=== PATIENT | female | born 1980 | race Caucasian/White ===

== ENCOUNTER 2017-01-27 04:52 | Inpatient (IN) | payer BC ==
[~2017-01-27] VITALS: Ht 172.7 cm; Wt 78.0 kg
[~2017-01-27 04:52] MED LIST: PREN29TA PO
[2017-01-27] MEDS ORDERED: LACTATED RINGER'S 1000 ML INJ 1,000 ML IV SCH (05:25)
[2017-01-27] MEDS ORDERED: LACTATED RINGER'S 1000 ML INJ 1,000 ML IV PRN (05:25)
--- NOTE | 2017-01-27 05:25 | HHI.HP ---
History & Physical H&P Patient Name: Penny Ewing Unit Number: [id number] Date of : 1980 Patient Status: Registered Clinic Attending Doctor: Brendan Alcantara II, MD HPI HPI Chief Complaint breech presentation at term Date Seen: Jan 24, 2017 Time Seen: 13:30 Travel History International Travel<30 Days: No Contact w/Intl Traveler<30Days: No Known Affected Area: No History of Present Illness HPI Patient is a 36-year-old white female at 39 weeks who is a patient of Dionne Hatfield presents in labor with SROM breech presentation management options, the patient currently is a breech fetus and she would rather not have a if possible she denies pain bleeding or leakage of fluid. she is CTXing with SROM and tami breech cx 8 cm Weeks Gestation: 39 Para: 1 : 2 History (Limited) History Obstetric History Obstetric History One vaginal delivery uncomplicated Social History Alcohol Use: No Tobacco Use: No Substance Abuse: No Allergies-Medications Allergies-Medications ROS Review of Systems General / Constitutional: No: Fever, Weight Gain, Chills, Other Eyes: No: Diploplia, Blurred Vision, Visual changes, Pain, Photophobia HENT: No: Headaches, Vertigo, Lightheadedness Cardiovascular: No: Irregular Rhythm, Chest Pain or Discomfort, Palpitations, Tachycardia, Syncope, Varicosities, Edema, Cyanosis Respiratory: No: Cough, Short of Breath, Other Gastrointestinal: No: Nausea, Vomiting, Diarrhea Genitourinary: No: Decreased Urinary Output, Oliguria Musculoskeletal: No: Limited ROM, Weakness, Cramping, Edema, Pain Skin: No Rash, No Itching, No Dryness, No Lumps, No Change in Pigmentation, No Change in Nails, No Alopecia, No Lesions Neurologic: No: Weakness, Dizziness, Syncope, Focal Abnormalities, Coordination Problem, Headache, Slurred Speech, Seizures Psychiatric: No: Depression, Suicidal Ideations, Homicidal Ideation Endocrine: No: Heat Intolerance, Cold Intolerance, Polydipsia, Polyuria, Other Physical Exam Physical Exam Narrative GENERAL: Well-nourished, well-developed patient. SKIN: Warm and dry. HEAD: Normocephalic and atraumatic. EYES: No scleral icterus. No injection or drainage. ENT: No nasal drainage noted. Mucous membranes pink. Airway patent. NECK: Supple, trachea midline. No JVD. CARDIOVASCULAR: Regular rate and rhythm without murmurs, gallops, or rubs. RESPIRATORY: Breath sounds equal bilaterally. No accessory muscle use. BREASTS: Bilateral exam showed no masses , no retractions, no nipple discharge. ABDOMEN/GI: Abdomen soft, non-tender, bowel sounds present, no rebound, no guarding Gravid to [39-] weeks size Fundal Height: [37-] GENITOURINARY: External Genitalia: intact and normal in appearance BUS glands: [-] Cervix: [post-] Dilatation: [8-] Effacement: 90] Station: [- 1] Presentation: [-breech] Membranes: SROM ] Uterine Contractions: [ q 2 min] FHT's: Category: [-1] Baseline: [-133] Reactive: [yes-] Variability: [mod-] Decels: [0-] EXTREMITIES: No cyanosis or edema. BACK: Nontender without obvious deformity. No CVA tenderness. NEUROLOGICAL: Awake and alert. Motor and sensory grossly within normal limits. Five out of 5 muscle strength in all muscle groups. Normal speech. Data Data [facility] Interpretation(s) Patient is 36-year-old white female at 39 weeks with a baby in a breech presentation, she would like to avoid if possible and all options were discussed today.she is in labor now 8 cm with SROM and she wants a vaginal Plan Diagnosis: breech at term in labor with SROM Disposition Plan to admit for delivery Condition: Stable Brendan Alcantara II, MD Jan [id number] Brendan Alcantara II, MD Jan 27, 2017 05:24
[2017-01-27] MEDS ORDERED: LIDOCAINE HCL 1% 50 ML VIAL I-DERMAL PRN (05:30)
[2017-01-27] MEDS ORDERED: OXYTOCIN 30 UNITS-500ML PREMIX 500 ML IV ONE (05:30)
[2017-01-27] MEDS ORDERED: LIDOCAINE HCL 1% 50 ML VIAL INFIL PRN (05:30)
[2017-01-27] MEDS ORDERED: MINERAL OIL 10 ML VIAL TOPICAL PRN (05:30)
[2017-01-27] MEDS ORDERED: SODIUM CHLORID 0.9% 500 ML BAG IV PRN (05:30)
[2017-01-27] MEDS ORDERED: CITRIC ACID-SODIUM CITRATE LIQ 30 ML UDC PO SCH (05:30)
[2017-01-27 05:35] LABS: AUTOMATED NEUTROPHIL # 6.4 TH/MM3 (1.8-7.7); BASOPHIL % 0.4 % (0.0-2.0); EOSINOPHIL # 0.1 TH/MM3 (0-0.4); EOSINOPHIL % 0.7 % (0.0-4.0); HEMATOCRIT 35.8 % (35.0-46.0); HEMO FLAGS DIFF FINAL; LYMPH % 19.2 % (9.0-44.0); LYMPHOCYTE # 1.7 TH/MM3 (1.0-4.8); MEAN CORPUSCULAR HEMOGLOBIN 31.9 PG (27.0-34.0); MEAN CORPUSCULAR HGB CONC 35.4 % (32.0-36.0); MONO % 6.5 % (0.0-8.0); NEUT % 73.2 % (16.0-70.0); PLATELET COUNT 179 TH/MM3 (150-450); RED BLOOD COUNT 3.98 MIL/MM3 (4.00-5.30); RED CELL DISTRIBUTION WIDTH 12.8 % (11.6-17.2); WHITE BLOOD COUNT 8.7 TH/MM3 (4.0-11.0)
[2017-01-27] MEDS ORDERED: SODIUM CHLOR 0.9% 1000 ML INJ 1,000 ML IV PRN (05:45)
[2017-01-27 05:47] LABS: BACTERIA, URINE RARE /hpf; BLOOD, URINE TRACE (NEG); COMMENT (UR) CULT NOT INDICATED; CULTURE IF INDICATED CULT NOT INDICATED; GLUCOSE,URINE NEG (NEG); KETONE, URINE NEG (NEG); MUCUS URINE FEW /lpf (OCC); NITRITE,URINE NEG (NEG); SQUAMOUS EPITHELIAL CELL URINE 1 /hpf (0-5); URINE COLOR LIGHT-YELLOW (YELLW/STRAW)
[2017-01-27 05:58] LABS: BLOOD GAS BASE EXCESS -3.2 mmol/L (-2-2); BLOOD GAS O2 HGB SATURATION 70 % (90-100); CORD BLOOD GAS HCO3 21 mmol/L (21-29); CORD BLOOD GAS PCO2 37 mmHG (34-78); CORD BLOOD GAS PH 7.37 (7.14-7.42); CORD BLOOD GAS PO2 33 mmHG (3.0-40.0); DRAW SITE CORD BLOOD; STAT YES
[2017-01-27] MEDS ORDERED: ACETAMINOPHEN 325 MG TAB PO PRN (06:15)
[2017-01-27] MEDS ORDERED: DOCUSATE SODIUM 50 MG/SENNA 8.6 MG TAB PO PRN (06:15)
[2017-01-27] MEDS ORDERED: ALUMINUM/MAGNESIUM/SIMETH 30 ML CUP PO PRN (06:15)
[2017-01-27] MEDS ORDERED: SODIUM CHLORIDE 0.9% FLUSH 10 ML FLUSH IV FLUSH PRN (06:15)
[2017-01-27] MEDS ORDERED: ZOLPIDEM TARTRATE 5 MG TAB PO PRN (06:15)
[2017-01-27] MEDS ORDERED: ONDANSETRON ODT 4 MG TAB PO PRN (06:15)
[2017-01-27] MEDS ORDERED: BENZOCAINE 20% TOPICAL SPRAY 60 ML CAN TOPICAL PRN (06:15)
[2017-01-27] MEDS ORDERED: OXYTOCIN 30 UNITS-500ML PREMIX 500 ML IV SCH (06:15)
[2017-01-27] MEDS ORDERED: WITCH HAZEL 50%/GLYCERIN 12.5% 40 PAD JAR TOPICAL PRN (06:15)
[2017-01-27] MEDS ORDERED: oxyCODONE/ACETAMINOPHEN 5 MG/325 MG TAB PO PRN ×2 (06:15)
--- NOTE | 2017-01-27 06:26 | PD.OB.DELI ---
Weeks gestation: 39 Gest age assessed date: Jan 27, 2017 Gest age assessed time: 04:52 Pt started active labor?: Yes Active labor start date: Jan 27, 2017 Active labor start time: 02:00 Medical induction of labor?: No Artificial rupture of membrane: No Anesthesia: None, Lidocaine local to perineum Episiotomy: Midline Vaginal Delivery: Normal Presentation: Breech Nuchal Cord: None Delayed cord clamping (45 sec): Yes Infant: Female, Single Delivery date: Jan 27, 2017 Delivery time: 05:42 One Minute : 8 Five Minute : 9 Weight: 3530 gm Placenta: Spontaneous delivery, Intact Laceration: Episiotomy, 2 deg Repair: Chromic running Estimated blood loss: 100 cc Additional Information tami breech delivered over 2 nd deg epis no complication cord ph 7.37 Brendan Alcantara II, MD Jan 27, 2017 06:26
[2017-01-27] MEDS: IBUPROFEN 800 MG TAB PO PRN ×3 (07:14→23:12)
[2017-01-27] MEDS ORDERED: MEASLES, MUMPS, RUBELLA VACCINE 0.5 ML VIAL SQ ONE (16:00)
[2017-01-27] MEDS ORDERED: DIPHTH/TETANUS/ACEL PERTUSSIS (BOOSTER) 0.5 ML VIAL/PFS IM ONE (16:00)
--- NOTE | 2017-01-28 07:09 | HHI.OB ---
Subjective Post Day: 1 Remarks Ms Ewing had no acute events overnight, VSS, normal lochia and decreasing, tolerating PO, voiding, flatus and ambulating. No BM yet. Feeding via breast. Denies CP, SOB, N/V/D and DVT pain. Objective Objective Remarks GENERAL: Well-nourished, well-developed patient in NAD. CARDIOVASCULAR: Regular rate and rhythm without murmur, gallop, or rub. RESPIRATORY: Breath sounds equal bilaterally. No accessory muscle use. ABDOMEN/GI: Abdomen soft, non-tender. Fundus: Firm, non-tender below umbilicus. GENITOURINARY: Light to moderate bleeding. EXTREMITIES: No cyanosis or edema, non-tender, without signs of DVT. Medications and IVs Current Medications Medications (Trade) Dose Ordered Sig/Tom Route Start Time Stop Time Status Last Admin Lactated Ringer's 1,000 ml @ 125 mls/hr Q8H IV 01/27/17 05:25 Lactated Ringer's 1,000 ml @ 3,000 mls/hr Q20M PRN IV 01/27/17 05:25 Sodium Chloride 1,000 ml @ 100 mls/hr Q10H PRN IV 01/27/17 05:45 (Xylocaine 1% Inj (50 ml)) 0.1 ml UNSCH X1 PRN I-DERMAL 01/27/17 05:30 01/30/17 05:29 (Bicitra Liq) 30 ml CARPET YARN WINDER OPERATOR PO 01/27/17 05:30 01/31/17 05:29 (fentaNYL INJ) 50 mcg Q1H PRN IV PUSH 01/27/17 05:30 (fentaNYL INJ) 100 mcg Q1H PRN IV PUSH 01/27/17 05:30 (Xylocaine 1% Inj (50 ml)) 10 ml UNSCH X1 PRN INFIL 01/27/17 05:30 01/29/17 05:29 (Muri-Lube Oil) 10 ml UNSCH PRN TOPICAL 01/27/17 05:30 (NS Flush) 2 ml BID IV FLUSH 01/27/17 09:00 (NS Flush) 2 ml UNSCH PRN IV FLUSH 01/27/17 06:15 (Tylenol) 650 mg Q4H PRN PO 01/27/17 06:15 (Motrin) 800 mg Q8H PRN PO 01/27/17 06:15 01/27/17 23:12 (Percocet 5-325 Mg) 1 tab Q4H PRN PO 01/27/17 06:15 (Percocet 5-325 Mg) 2 tab Q4H PRN PO 01/27/17 06:15 (Americaine 20% Top Spr) 1 spray Q4H PRN TOPICAL 01/27/17 06:15 (Tucks Pads) 1 applic QID PRN TOPICAL 01/27/17 06:15 (Megan-Colace) 2 tab Q12H PRN PO 01/27/17 06:15 01/27/17 23:12 (Ambien) 5 mg HS PRN PO 01/27/17 06:15 (Mag-Al Plus Susp Liq) 15 ml Q8H PRN PO 01/27/17 06:15 (Zofran Odt) 4 mg Q6H PRN PO 01/27/17 06:15 Assessment/Plan Assessment and Plan 36YO delivered via @39 weeks breech with 2nd degree episiotomy and 100c EBL is progressing well on PPD#1. Decreasing lochia, pain controlled, voiding, flatus, and ambulating. . Would like to discharge today if possible. PLAN: -Routine care -Ibuprofen, tylenol for pain PRN -Oral fluids -OOB/ambulation -Vaginal rest [id number] -Followup with PCP/[facility] CEMENTER in 6 weeks -Return if fever or abnormal drainage from episiotomy -Undecided on contraception Discussed with Giuliana Rosario and Carlos Mckeon MD R1 Jan 28, 2017 07:09
[2017-01-28] MEDS: SODIUM CHLORIDE 0.9% FLUSH 10 ML FLUSH IV FLUSH SCH ×2 (09:48→12:16)
[2017-01-28] MEDS ORDERED: PERI PO (12:13)
[2017-01-28] MEDS ORDERED: IBUP1TAB7 PO (12:13)
--- NOTE | 2017-01-28 12:13 | HHI.DCPOC ---
Discharge Care Plan Diagnosis: (1) Vaginal delivery Report Symptoms to Your Doctor -Temperature above 100.5 degrees -Redness, of incision or excessive or foul smelling drainage -Unusual pain or calf pain -Increased vaginal bleeding -Painful or difficulty urinating -Feelings of extreme sadness or anxiety after 2 weeks Goals to Promote Your Health * To prevent worsening of your condition and complications * To maintain your health at the optimal level Directions to Meet Your Goals Take your medications as prescribed Follow your dietary instruction Follow activity as directed Ensure plenty of rest for recovery Drink fluids for hydration Keep your appointments as scheduled Take your immunizations and boosters as scheduled If your symptoms worsen call your PCP, if no PCP go to Urgent Care Center or Emergency Room Smoking is Dangerous to Your Health. Avoid second hand smoke Call the 24-hour crisis hotline for domestic abuse at Ashanti Valencia MD R2 Jan 28, 2017 12:13
[2017-01-28] MEDS: IBUPROFEN 800 MG TAB PO PRN (12:14)
== END 2017-01-28 18:02 | disposition home or self-care (01) | DRG 775 ==
LOC: EDBD 04:52 → HOBED 04:52 → H2EB 05:16 → H1EA 07:39
PROVIDERS: ADMIT Obstetrics & Gynecology Maternal & Fetal Medicine; ATTEND Obstetrics & Gynecology Maternal & Fetal Medicine
PROC: 10E0XZZ Delivery of Products of Conception, External Approach (ICD-10-PCS; principal; 2017-01-27)
PROC: 0KQM0ZZ Repair Perineum Muscle, Open Approach (ICD-10-PCS; 2017-01-27)
PROC: 0W8NXZZ Division of Female Perineum, External Approach (ICD-10-PCS; 2017-01-27)
DX: O32.1XX0 Maternal care for breech presentation, not applicable or unspecified (principal); O70.1 Second degree perineal laceration during delivery; Z37.0 Single live birth; Z3A.39 39 weeks gestation of pregnancy
CPT/HCPCS: 59025; 80307; 81001; 82805; 85025; 86900; 86901